=== PATIENT | female | born 1965 | race Two or more races ===

== ENCOUNTER → 2016-08-01 | Outpatient (CLI) | payer BC | LOC: SBRMNEURO 21:00 | PROVIDERS: ATTEND Internal Medicine Pulmonary Disease | DX: G47.33 Obstructive sleep apnea (adult) (pediatric) (principal); G47.61 Periodic limb movement disorder ==

== ENCOUNTER 2017-09-15 13:32 | Day surgery (SDC) | payer BC ==
[2017-09-15] MEDS ORDERED: LR 1,000 ML IV ONE (14:01)
[2017-09-15] MEDS ORDERED: LIDOCAINE 1% 2 ML INJ ID PRN (14:01)
--- NOTE | 2017-09-15 14:39 | PDANEPAE ---
ANE History of Present Illness ugi DISCOMFORT HERE FOR egd eus ANE Past Medical History - Cardiovascular History Hx Hypertension: No Hx Arrhythmias: No Hx Chest Pain: No Hx Coronary Artery / Peripheral Vascular Disease: No Hx CHF / Valvular Disease: No Hx Palpitations: No - Pulmonary History Hx COPD: No Hx Asthma/Reactive Airway Disease: No Hx Recent Upper Respiratory Infection: No Hx Oxygen in Use at Home: Yes Hx Sleep Apnea: Yes Sleep Apnea Screening Result - Last Documented: Positive Pulmonary History Comment: ZACHARIAH USES C-PAP ,INSTRUCTED TO BRING DOP. SINUS INFECTION 06/2017 - Neurologic History Hx Cerebrovascular Accident: No Hx Seizures: No Hx Dementia: No - Endocrine History Hx Diabetes: No - Renal History Hx Renal Disorders: No - Liver History Hx Hepatic Disorders: Yes Hepatic History Comment: FATTY LIVER DX - Neurological & Psychiatric Hx Hx Neurological and Psychiatric Disorders: Yes Neurological / Psychiatric History Comment: PTSD. ANXIETY/DEPRESSION. MIGRAINES MONTHLY - Cancer History Hx Cancer: No - Congenital Disorder History Hx Congenital Disorders: No - GI History Hx Gastrointestinal Disorders: Yes Gastrointestinal History Comment: COLONOSCOPY WITH POLYP REMVL 2014. GI DISCOMFORT/BLOATING - Other Health History Other Health History: FIBROMYALGIA. TRIGEMINAL NEURALGIA GET REGULAR INJECTION - Chronic Pain History Chronic Pain: Yes (GI) - Surgical History Prior Surgeries: GISELA 2010. REMVL NERVE STIM. APPY. TOTAL HYSTERECTOMY. DX LAP ANE Review of Systems Review of Systems: - Exercise capacity METS (RN): 4 METS ANE Patient History - Allergies Allergies/Adverse Reactions: carbamazepine [From Tegretol] Allergy (Severe, Verified 06/15/10 11:32) Gianfranco Joseph Syndrome phenytoin sodium [From Dilantin] Allergy (Severe, Verified 06/15/10 11:33) Gianfranco Joseph Syndrome phenytoin sodium extended [From Dilantin] Allergy (Severe, Verified 06/15/10 11: 33) Gianfranco Joseph Syndrome ibuprofen Allergy (Intermediate, Verified 10/03/10 15:30) Itching pregabalin [From Lyrica] Allergy (Intermediate, Verified 10/03/10 15:30) Other-Enter Comments topiramate [From Topamax] Allergy (Intermediate, Verified 10/03/10 15:30) Itching gabapentin [From Neurontin] Allergy (Verified 06/15/10 11:33) Other-Enter Comments latex [Latex] Allergy (Verified 06/15/10 11:31) Itching Penicillins Allergy (Verified 06/15/10 11:32) Itching Sulfa (Sulfonamide Antibiotics) Allergy (Verified 06/15/10 11:29) SEVERE HEADACHE zolpidem tartrate [From Ambien] Allergy (Verified 06/15/10 11:31) Other-Enter Comments - Home Medications Home medications: home medication list seen and reviewed Home Medications: CLONAZEPAM PRN 09/05/17 [Last Taken 09/15/17 06:30] Estradiol DAILY 09/05/17 [Last Taken 2 Days Ago ~09/13/17] Herbals/Supplements -Info Only DAILY 09/05/17 [Last Taken 09/15/17 06:30] Hyoscyamine Sulfate TID 09/05/17 [Last Taken 2 Days Ago ~09/13/17] Ibuprofen PRN 09/05/17 [Last Taken Unknown] Prazosin HCl HS 09/05/17 [Last Taken 1 Day Ago ~09/14/17] Viibryd DAILY 09/05/17 [Last Taken 09/15/17 06:30] busPIRone BID 09/05/17 [Last Taken 1 Day Ago ~09/14/17] - NPO status NPO Status: no food or drink >8 hours NPO Since - Liquids (Date): 09/15/17 NPO Since - Liquids (Time): 06:30 NPO Since - Solids (Date): 09/14/17 NPO Since - Solids (Time): 18:00 - Anes Hx Anes Hx: no prior problems - Smoking Hx Smoking Status: Former smoker - Alcohol Use Alcohol Use: None - Family Anes Hx Family Anes Hx: none ANE Labs/Vital Signs - Vital Signs Blood Pressure: 143/94 Heart Rate: 84 Respiratory Rate: 18 O2 Sat (%): 94 Height: 161.29 cm Weight: 72.575 kg ANE Physical Exam - Airway Neck exam: FROM Mallampati Score: Class 2 Mouth exam: normal dental/mouth exam - Pulmonary Pulmonary: no respiratory distress, clear to auscultation - Cardiovascular Cardiovascular: regular rate and rhythym, no murmur, rub, or gallop - ASA Status ASA Status: II ANE Anesthesia Plan Anesthesia Plan: GA with mask Total IV Anesthesia: Yes
--- NOTE | 2017-09-15 14:42 | PDGENHP ---
History & Physical Chief Complaint: ruq abnl pain History of Present Illness: 52 year old female presents for evaluatoin of RUQ abdominal pain and increased LFTs. Exac by oral intake. Pertinent Past, Social, Family History: PMHx: fatty liver, fibromyalgia, ZACHARIAH. PSugHx: ZACHARIAH Relevant Physical Exam: HEENT: anicteric sclera. CV: RRR +s1s2. Lungs: CTAB. Abd: soft, nt, + bs. No g/r Cardiorespiratory Assessment: ASA 2. mall 2
[2017-09-15] MEDS ORDERED: PROPOFOL/EMULSION 500 MG/50 ML BOTTLE IV ONE (14:44)
[2017-09-15] MEDS ORDERED: NS 500 ML IV SCH (14:45)
[2017-09-15] MEDS ORDERED: NALOXONE HCL 0.4 MG/ML INJ IVP PRN (15:24)
--- NOTE | 2017-09-15 15:25 | POSTANESTH ---
Post Anesthetic Evaluation Cardiovascular Status: Normal, Stable, Similar to Pre-Op Cond Respiratory Status: Normal, Stable, Similar to Pre-op Cond. Level of Consciousness/Mental Status: Can Participate in Eval, Alert and Oriented Pain Control: Adequate, Prn Tx Ordered Nausea/Vomiting Control: Adequate, Prn Tx Ordered Complications Possibly Related to Anesthesia: None Noted
--- NOTE | 2017-09-15 15:45 | GIREPORT ---
[facility] Surgical Services - Endoscopy Department Patient Name: Micheline Lane Procedure Date: 09/15/2017 2:40 PM Patient Type: Outpatient Attending MD/ ER Physician: Yeyo Rm MD Procedure: Upper EUS Indications: Elevated alkaline phosphatase, Abdominal pain in the right upper quadra nt, Abnormal imaging. Patient Profile: 52 year old female presents for evaluation of abnormal imaging, RUQ abdominal pain, and elevated LFTs. Providers: Yeyo Rm MD Medicines: Monitored Anesthesia Care Complications: No immediate complications. Estimated blood loss: Minimal. Description of Procedure: After obtaining informed consent, the endoscope was passed under direct vision. Throughout the procedure, the patient's blood pressure, pulse, and oxygen saturations were monitored continuously. The Endosonoscope was introduced through the mouth, and advanced to the second part of duoden um. The esophagus, stomach, and duodenum were visualized endosonographicall y. The upper GI endoscopy was accomplished without difficulty. The patient tolerated the procedure well. After obtaining informed consent, the endoscope was passed under direct vision. Throughout the procedure, the patient's blood pressure, pulse, and oxygen saturations were monitored continuously. The Endoscope was introduced through the mouth, and advan lakeisha to the esophagus for ultrasound examination. Findings: Endoscopic Finding : The Z-line was irregular and was found at the gastroesophageal junction . Biopsies were taken with a cold forceps for histology. A small hiatal hernia was present. Patchy mildly erythematous mucosa was found in the gastric body and in the gastric antrum. Biopsies were taken with a cold forceps for histology. The examined duodenum was normal. Biopsies for histology were taken wit h a cold forceps for evaluation of celiac disease. Endosonographic Finding : There was no sign of significant endosonographic abnormality in the visualized portion of the liver. No masses were identified. Pancreatic parenchymal abnormalities were noted in the entire pancreas. These consisted of hyperechoic foci. No lymphadenopathy seen. A small amount of hyperechoic material consistent with sludge was visua lized endosonographically in the common bile duct. The CBD was not signficant ly dilated. Estimated Blood Loss: Estimated blood loss was minimal. Post Op Diagnosis: - Z-line irregular, at the gastroesophageal junction. Biopsied. - Small hiatal hernia. - Erythematous mucosa in the gastric body and antrum. Biopsied. - Normal examined duodenum. Biopsied. - There was no evidence of significant pathology in the visualized port ion of the liver. - Pancreatic parenchymal abnormalities consisting of hyperechoic foci w ere noted in the entire pancreas. - Hyperechoic material consistent with sludge was visualized endosonographically in the common bile duct. - Etiology? No obvious cause of pain. No ulcer or evidence of chronic pancreatitis seen. Minimal sludge seen in CBD. Would try trial of antispasmodic? Await biopsy results. Recommendation: - Discharge patient to home (with escort). - Continue present medications. - Resume regular diet. - Return to GI office in 6 weeks. - Await biopsy results. - Thank you for allowing me to participate in the care of your patient. Attending Participation: I personally performed the entire procedure. Yeyo Rm MD Yeyo Rm MD 09/15/2017 3:44:48 PM This report has been signed electronicallyYeyo Rm MD Number of Addenda: 0 Note Initiated On: 09/15/2017 2:40 PM [email or web address]
[2017-09-15 17:25] VITALS: BP 138/76
== END 2017-09-15 16:50 | disposition home or self-care (01) ==
LOC: FSGY 13:32
PROVIDERS: ATTEND Internal Medicine Gastroenterology
DX: K29.70 Gastritis, unspecified, without bleeding (principal); R79.89 Other specified abnormal findings of blood chemistry; R74.8 Abnormal levels of other serum enzymes
CPT/HCPCS: J2704